=== PATIENT | female | born 1985 | race African-American/Black ===

== ENCOUNTER 2016-08-13 20:36 | Emergency (ER) | payer BC ==
[2016-10-22] MEDS ORDERED: AMB5 PO (20:53)
[2016-10-22] MEDS ORDERED: PROAIR HFA INH (20:53)
[2016-10-22] MEDS ORDERED: ALEVE220 MG PO (20:54)
[2016-10-27] MEDS ORDERED: ULTRAM50 PO (12:09)
[2016-10-27] MEDS ORDERED: FLEX PO (12:09)
[2016-10-27] MEDS ORDERED: AMIT25 PO (12:09)
[2016-10-27] MEDS ORDERED: PCET PO (12:10)
[2016-10-27] MEDS ORDERED: PROTONIX PO (12:10)
[2016-10-27] MEDS ORDERED: PR12.5 PO (12:11)
== END 2016-08-13 22:47 | disposition home or self-care (01) ==
LOC: ER 20:36
DX: S93.402A Sprain of unspecified ligament of left ankle, initial encounter (principal); J45.909 Unspecified asthma, uncomplicated; Z88.0 Allergy status to penicillin; Z91.040 Latex allergy status; Z91.013 Allergy to seafood; X58.XXXA Exposure to other specified factors, initial encounter
CPT/HCPCS: 73610-LT; 99283; A9270-GY

== ENCOUNTER 2016-10-15 21:32 | Emergency (ER) | payer BC ==
[2016-10-15 19:30] LABS: BASOPHILS 0.2 %; BASOPHILS ABSOLUTE 0.02 10/3/uL (0.0-0.16); EOSINOPHILS 2.7 %; EOSINOPHILS ABSOLUTE 0.26 10/3/uL (0.0-0.53); ER CBC TAT 0 Hrs 05 Mins; HEMATOCRIT 39.4 % (36.0-48.0); HEMOGLOBIN 12.9 g/dL (12.0-16.0); IMMATURE GRANULOCYTES 0.5 %; IMMATURE GRANULOCYTES ABSOLUTE 0.05 10/3/uL (0.0-0.11); LYMPHOCYTES 29.1 %; LYMPHOCYTES ABSOLUTE 2.85 10/3/uL (0.67-4.30); MEAN CORPUS HGB CONC 32.7 g/dL (32.0-36.0); MEAN CORPUSCULAR HEMOGLOB 29.6 pg (26.0-34.0); MEAN CORPUSCULAR VOLUME 90.4 fL (80-100); MEAN PLATELET VOLUME 10.5 fL (9.2-13.0); MONOCYTES 7.1 %; NEUTROPHILS 60.4 %; NEUTROPHILS ABSOLUTE 5.92 10/3/uL (2.02-8.40); RBC DISTRIBUTION WIDTH 14.1 % (12.0-16.0); RED CELL COUNT 4.36 10/6/uL (4.0-5.6); WHITE BLOOD CELLS 9.8 10/3/uL (4.5-10.5)
[2016-10-15 19:31] LABS: MANUAL DIFF NO %; PLATELET COUNT 257 10/3/uL (150-400)
[2016-10-15 19:38] LABS: PROTIME (NOT ORD) 13.3 SEC (12.0-14.5)
[2016-10-15 19:45] LABS: BUN (BLOOD UREA NITROGEN) 13 MG/DL (6-23); CALCIUM, SERUM 8.6 MG/DL (8.5-10.4); CHEST PAIN PROFILE TAT 0 Hrs 20 Mins; CHLORIDE, SERUM 108 MMOL/L (96-112); CO2 (CARBON DIOXIDE) 27 MMOL/L (24-34); CREATININE 0.73 MG/DL (0.55-1.02); GFR AFRICAN AMERICAN 126 ML/MIN (>=60); GFR NON AFRICAN AMERICAN 109 ML/MIN (>=60); POTASSIUM, SERUM 3.8 MMOL/L (3.5-5.3); SODIUM, SERUM 140 MMOL/L (135-148); TROPONIN I <0.02 NG/ML (<0.05)
[2016-10-15 19:46] LABS: GLUCOSE, SERUM 94 MG/DL (60-99)
[2016-10-15 22:53] LABS: D-DIMER QUANTITATIVE 0.71 ug/mLFEU (< 0.50)
[2016-10-22] MEDS ORDERED: PROAIR HFA INH (20:53)
[2016-10-22] MEDS ORDERED: AMB5 PO (20:53)
[2016-10-22] MEDS ORDERED: ALEVE220 MG PO (20:54)
[2016-10-27] MEDS ORDERED: AMIT25 PO (12:09)
[2016-10-27] MEDS ORDERED: FLEX PO (12:09)
[2016-10-27] MEDS ORDERED: ULTRAM50 PO (12:09)
[2016-10-27] MEDS ORDERED: PROTONIX PO (12:10)
[2016-10-27] MEDS ORDERED: PCET PO (12:10)
[2016-10-27] MEDS ORDERED: PR12.5 PO (12:11)
== END 2016-10-16 00:06 | disposition home or self-care (01) ==
LOC: ER 21:32
PROVIDERS: Emergency Medicine
DX: R07.89 Other chest pain (principal); M79.605 Pain in left leg; R51 Headache; J45.909 Unspecified asthma, uncomplicated; Z88.0 Allergy status to penicillin; Z91.040 Latex allergy status; Z91.013 Allergy to seafood; Z88.8 Allergy status to other drugs, medicaments and biological substances
CPT/HCPCS: 71020; 71275; 80048; 83735; 83880; 84484; 85025; 85379; 85610; 85730; 93005; 93971; 94640; 96374; 96375; 99285; J1885; J2405; J2930; Q9967